=== PATIENT | male | born 1940 | race Caucasian/White ===

== ENCOUNTER 2020-05-29 11:45 | Emergency (ER) | payer OTHER ==
[2020-05-29 11:48] VITALS: BP 151/89; PULSE 82; TEMP 98.7; BMI 50.8
--- NOTE | 2020-05-29 11:51 | PDOC ---
History of Present Illness - General Chief Complaint: Suture/Staple Removal (other) Stated Complaint: SUTURE REMOVAL - History of Present Illness Initial Comments: 05/29/20 15:44 80 years old presents for suture removal to right forehead well-healing Past History - Medical History Allergies/Adverse Reactions: Allergies Allergy/AdvReac Type Severity Reaction Status Date / Time No Known Allergies Allergy Unverified 05/20/20 17:22 Home Medications: Ambulatory Orders NK [No Known Home Medication] 05/20/20 COPD: No - Immunization History Immunization Up to Date: Yes - Psycho-Social/Smoking History Smoking History: Never smoked Have you smoked in the past 12 months: No Information on smoking cessation initiated: No - Substance Abuse Hx (Audit-C & DAST Scrn) How often the patient has a drink containing alcohol: Never Score: In Men: 4 or > Positive; In Women: 3 or > Positive: 0 Screen Result (Pos requires Nsg. Audit-10AR): Negative In the last yr the pt used illegal drug/Rx for NonMed reason: No Score: Yes response is considered Positive: 0 Screen Result (Positive result requires Nsg. DAST-10): Negative Review of Systems - Review of Systems Comments:: 05/29/20 11:50 ROS: A complete review of 10 out of 10 review of systems is taken and is negative apart from what is previously mentioned below and in the HPI. *Physical Exam - Vital Signs Last Vital Signs Temp Pulse Resp BP Pulse Ox 98.7 F 82 18 151/89 100 05/29/20 11:45 05/29/20 11:45 05/29/20 11:45 05/29/20 11:45 05/29/20 11:45 - Physical Exam 05/29/20 11:50 Vitals: Triage Vital signs reviewed General Appearance: No acute distress, well nourished well developed, Head: [address] above right eyebrow. Eyes: Pupils equal reactive round, extraocular movement intact Skin: Warm and dry, no rashes or lesions, no rash, no petechiae Neuro: strength intact to all extremities, sensation intact to all extremities, gait normal Psych: Normal mood, normal affect Medical Decision Making - Medical Decision Making 05/29/20 11:50 3 sutures removed with no complications. Recommend bacitracin twice a day and return to ED for any signs of infection Findings, the need for follow-up and strict return instructions discussed with patient. Discharge - Discharge Information Problems reviewed: Yes Clinical Impression/Diagnosis: Visit for suture removal Condition: Stable Disposition: HOME - Admission No - Follow up/Referral - Patient Discharge Instructions Patient Printed Discharge Instructions: DI for Suture Removal Additional Instructions: Apply bacitracin twice a day. Return to ED for any sign of infection or for any concerns. - Post Discharge Activity
--- OUTSIDE RECORDS SUMMARY | 2020-05-29 12:07 | XMS ---
:1940 Author [facility] Support Name Relationship Address Phone RE Unavailable Unavailable Unavailable BONITA [place] [address] Re-disclosure Warning The records that you are about to access may contain information from federally- assisted alcohol or drug abuse programs. If such information is present, then the following federally mandated warning applies: This information has been disclosed to you from records protected by federal confidentiality rules (42 CFR part 2). The federal rules prohibit you from making any further disclosure of this information unless further disclosure is expressly permitted by the written consent of the person to whom it pertains or as otherwise permitted by 42 CFR part 2. A general authorization for the release of medical or other information is NOT sufficient for this purpose. The Federal rules restrict any use of the information to criminally investigate or prosecute any alcohol or drug abuse patient.The records that you are about to access may contain highly sensitive health information, the redisclosure of which is protected by Article 27-F of the [facility] Public Health law. If you continue you may haveaccess to information: Regarding HIV / AIDS; Provided by facilities licensed or operated by the [facility] Office of Mental Health; or Provided by the [facility] Office for People With Developmental Disabilities. If such information is present, then the following [facility] mandated warning applies: This information has been disclosed to you from confidential records which are protected by state law. State law prohibits you from making any further disclosure of this information without the specific written consent of the person to whom it pertains, or as otherwise permitted by law. Any unauthorized further disclosure in violation of state law may result in a fine or fci sentence or both. A general authorization for the release of medical or other information is NOT sufficient authorization for further disclosure. Insurance Providers Payer name Policy type Policy ID Covered Covered constitution party's Policy P lucy / Coverage constitution party ID relationship to [employer] Inf ormation type [employer] MEDICARE [id number] SP [id number]
== END 2020-05-29 12:07 | disposition home or self-care (01) ==
LOC: FER 11:45
DX: Z48.02 Encounter for removal of sutures (principal)
CPT/HCPCS: 99281-25